=== PATIENT | female | born 1950 | race African-American/Black ===

== ENCOUNTER → 2018-06-23 | Outpatient (CLI) | payer MEDICARE ==
--- NOTE | 2018-06-23 17:48 | Diagnostic Imaging Report ---
Frontal and lateral views of the chest. HISTORY: Shortness of breath COMPARISON: None available. DISCUSSION: Lungs: The lungs are well inflated. No evidence of a consolidative pneumonia or pulmonary alveolar edema. Pleura: No pleural effusion or pneumothorax. Heart and mediastinum: The cardiomediastinal silhouette appears unremarkable. Multiple small calcified right hilar and mediastinal lymph nodes. Bones: No acute osseous lesion. IMPRESSION: No acute radiographic abnormality. Signed by: Dr. Freeman Lee D.O., M.M.M. on 06/23/2018 5:44 PM
--- NOTE | 2018-06-24 08:16 | Diagnostic Imaging Report ---
EXAM: Thyroid Ultrasound INDICATION: Disorder of thyroid. Prior radiation for cancer COMPARISON: None TECHNIQUE: Transverse and sagittal images were obtained of the thyroid gland. FINDINGS: Thyroid gland: Size: Right lobe 3.2 x 1.0 x 1.1 cm, small in size Left lobe 2.6 x 0.8 x 1.1 cm, small in size Isthmus 0.2 cm, small in size Appearance: Homogeneous echotexture without increased vascularity Masses/Nodules: None Parathyroid: No focal parathyroid masses. IMPRESSION: Small thyroid gland. No focal mass is seen. Signed by: Dr. Mark Holliday M.D. on 06/24/2018 8:13 AM
== END ==
LOC: RAD 16:51
DX: R06.02 Shortness of breath (principal)
CPT/HCPCS: 71046; 76536

== ENCOUNTER 2018-07-14 10:19 | Inpatient (IN) | payer MEDICARE ==
[~2018-07-14] VITALS: Ht 289.6 cm; Wt 67.7 kg
[2018-07-14] MEDS: POTASSIUM CHLORIDE 20MEQ/100ML 100 ML IV SCH ×3 (05:00→20:56)
[~2018-07-14 10:19] MED LIST: LEVOTHYROXINE50 MCG PO; NEXIUM40 MG PO
--- OUTSIDE RECORDS SUMMARY | 2018-07-14 10:21 | XMS REPORT ---
Author Author [facility] Address Unknown Phone Unavailable Care Team Providers Care Medical Examiner Name Role Phone ANTONIA MURRELL Unavailable Unavailable Problems This patient has no known problems. Allergies, Adverse Reactions, Alerts This patient has no known allergies or adverse reactions. Medications This patient has no known medications. Results Test Description Test Time Test Comments Text Results Atomic Results Result Comments US THYROID 2018-06-24 08:12:00 [place] [address] Patient Name: CAROLYN LAM MR #: [id number] : 1950 Age/Sex: 68/F [id number] Req #: [id number] [facility] Physician: Ordered by: ANTONIA MURRELL MD Report #: [id number] Location: [facility] Room/Bed: Procedure: [id number] US/US THYROID Exam Date: Exam Time: REPORT STATUS: Signed EXAM: Thyroid Ultrasound INDICATION: Disorder of thyroid. Prior radiation for cancer COMPARISON: None TECHNIQUE: Transverse and sagittal images were obtained of the thyroid gland. FINDINGS: Thyroid gland: Size: Right lobe 3.2 x 1.0 x 1.1 cm, small in size Left lobe 2.6 x 0.8 x 1.1 cm, small in size Isthmus 0.2 cm, small in size Appearance: Homogeneous echotexture without increased vascularity Masses/Nodules: None Parathyroid: No focal parathyroid masses. IMPRESSION: Small thyroid gland. No focal mass is seen. Signed by: Dr. Mark Holliday M.D. on 06/24/2018 8:13 AM Dictated By: MARK HOLLIDAY MD, MD 2 Transcribed By: JOY on 06/24/18812 COPY TO: ANTONIA MURRELL MD CHEST 2 VIEWS 2018-06-23 17:43:00 [place] [address] Patient Name: CAROLYN LAM MR #: [id number] : 1950 Age/Sex: 68/F [id number] Req #: [id number] Adm Physician: Ordered by: ANTONIA MURRELL MD Report #: [id number] Location: [facility] Room/Bed: Procedure: [id number] DX/CHEST 2 VIEWS Exam Date: 06/23/18 Exam Time: 1728 REPORT STATUS: Signed Frontal and lateral views of the chest. HISTORY: Shortness of breath COMPARISON: None available. DISCUSSION: Lungs: The lungs are well inflated. No evidence of a consolidative pneumonia or pulmonary alveolar edema. Pleura: No pleural effusion or pneumothorax. Heart and mediastinum: The cardiomediastinal silhouette appears unremarkable. Multiple small calcified right hilar and mediastinal lymph nodes. Bones: No acute osseous lesion. IMPRESSION: No acute radiographic abnormality. Signed by: Dr. John Lee D.O., M.M.M. on 06/23/2018 5:44 PM Dictated By: JOHN LEE DO 43 Transcribed By: JOY on 06/23/181743 COPY TO: ANTONIA MURRELL MD
[2018-07-14 14:35] VITALS: BP 132/76
[2018-07-14 15:30] VITALS: BP 132/70
[2018-07-14] MEDS ORDERED: POTASSIUM CHLORIDE 20MEQ/100ML 100 ML IV ONE (16:15)
[2018-07-14] MEDS ORDERED: POTASSIUM CHLORIDE 20 MEQ TAB CR PO ONE (16:30)
[2018-07-14 20:00] VITALS: BP 139/82
[2018-07-15] VITALS (7 sets, daily range): BP systolic 101–164; BP diastolic 59–76
[2018-07-15] MEDS: POTASSIUM CHLORIDE 20MEQ/100ML 100 ML IV SCH (02:17)
[2018-07-15] MEDS ORDERED: CITRATE OF MAGNESIA 300ML BOTTLE PO ONE (05:00)
[2018-07-15] MEDS: LEVOTHYROXINE SODIUM 50 MCG TAB PO SCH (05:09)
[2018-07-15 05:50] LABS: ANION GAP 13.4 mmol/L (8-16); BLOOD UREA NITROGEN 7 mg/dL (7-26); BUN/CREATININE RATIO 7 (6-25); CALCIUM 9.5 mg/dL (8.4-10.2); CARBON DIOXIDE 26 mmol/L (22-29); CHLORIDE 103 mmol/L (98-107); CREATININE, SERUM 0.95 mg/dL (0.57-1.11); EST GLOMERULAR FILTRATION RATE > 60 ML/MIN (60-); GLUCOSE 93 mg/dL (74-118); POTASSIUM 3.4 mmol/L (3.5-5.1); SODIUM 139 mmol/L (136-145)
[2018-07-15] MEDS ORDERED: PANTOPRAZOLE SOD 40 MG TABEC PO SCH (09:00)
[2018-07-15] MEDS ORDERED: LEVOTHYROXINE SODIUM 50 MCG TAB PO SCH (09:00)
[2018-07-15] MEDS: PANTOPRAZOLE 40 MG 10ML VIAL IV SCH ×2 (09:22→21:42)
[2018-07-15] MEDS ORDERED: POTASSIUM CHLORIDE 20MEQ/100ML 100 ML IV ONE (11:30)
[2018-07-15] MEDS ORDERED: HYOSCYAMINE SULFATE 0.5 MG/ML INJ ONE (16:00)
--- NOTE | 2018-07-15 16:14 | Diagnostic Imaging Report ---
Exam: Abdominal radiograph History: Localizing wire Comparison: None. Findings: See impression Impression: Endoscopy wire with the distal tip below the diaphragm and located anteriorly overlying the upper abdomen. Signed by: Dr. Lan Mcgregor M.D. on 07/15/2018 4:11 PM
[2018-07-15] MEDS ORDERED: FENTANYL CITRATE/PF 100MCG/2 ML INJ ONE ×2 (16:48→18:56)
[2018-07-15] MEDS ORDERED: LIDOCAINE HCL 2% LOCAL INJ 5 ML SDV VIAL INJ ONE (17:37)
[2018-07-15] MEDS ORDERED: PROPOFOL IV EMULSION 10 MG/ML 20 ML VIAL ONE (17:37)
[2018-07-15] MEDS ORDERED: MIDAZOLAM HCL 2 MG/2 ML VIAL ONE (18:56)
[2018-07-15 19:33] LABS: BASOPHILS % 0.9 % (0.0-1.0); EOSINOPHILS # (AUTO) 0.1 (0.0-0.4); EOSINOPHILS % 1.7 % (0.0-6.0); HEMATOCRIT 25.1 % (34.2-44.1); HEMOGLOBIN 7.1 g/dL (12.0-16.0); LYMPHOCYTES # (AUTO) 0.9 (1.0-3.2); LYMPHOCYTES % 19.7 % (18.0-39.1); MEAN CORPUSCULAR HEMOGLOBIN 27.8 pg (28-32); MEAN CORPUSCULAR HGB CONC 28.3 g/dL (31-35); MEAN CORPUSCULAR VOLUME 98.4 fL (81-99); MONOCYTES # (AUTO) 0.5 (0.2-0.8); MONOCYTES % 9.9 % (4.4-11.3); NEUTROPHILS # (AUTO) 2.6 (2.1-6.9); NEUTROPHILS % 56.2 % (38.7-80.0); PLATELET COUNT 170 x10e3/uL (140-360); RED BLOOD COUNT 2.55 x10e6/uL (3.6-5.1); RED CELL DISTRIBUTION WIDTH 21.6 % (11.7-14.4)
[2018-07-15 20:28] LABS: EOSINOPHILS % (MANUAL) 1 % (0-7); HYPOCHROMASIA MODERATE; LYMPHOCYTES % (MANUAL) 29 % (19-48); METAMYELOCYTES % (MANUAL) 1 % (0-0); MONOCYTES % (MANUAL) 8 % (3.4-9.0); NEUTROPHILS % (MANUAL) 52 % (40-74); NUCLEATED RED BLOOD CELLS 6
[2018-07-15 20:29] LABS: PLATELET ESTIMATE ADEQUATE; PLATELET MORPHOLOGY COMMENT NORMAL; RBC MORPHOLOGY COMMENT NORMAL
[2018-07-16] VITALS (7 sets, daily range): BP systolic 106–149; BP diastolic 54–88
[2018-07-16 05:32] LABS: BASOPHILS % 0.5 % (0.0-1.0); EOSINOPHILS # (AUTO) 0.1 (0.0-0.4); EOSINOPHILS % 1.2 % (0.0-6.0); LYMPHOCYTES % 17.4 % (18.0-39.1); MEAN CORPUSCULAR HEMOGLOBIN 28.3 pg (28-32); MEAN CORPUSCULAR HGB CONC 29.2 g/dL (31-35); MONOCYTES # (AUTO) 0.6 (0.2-0.8); MONOCYTES % 10.2 % (4.4-11.3); NEUTROPHILS # (AUTO) 3.8 (2.1-6.9); NEUTROPHILS % 63.3 % (38.7-80.0); PLATELET COUNT 161 x10e3/uL (140-360); RED BLOOD COUNT 2.33 x10e6/uL (3.6-5.1); RED CELL DISTRIBUTION WIDTH 21.3 % (11.7-14.4)
[2018-07-16] MEDS: LEVOTHYROXINE SODIUM 50 MCG TAB PO SCH (05:51)
[2018-07-16 05:58] LABS: HEMATOCRIT 22.6 % (34.2-44.1); HEMOGLOBIN 6.6 g/dL (12.0-16.0)
[2018-07-16 06:06] LABS: ANION GAP 13.2 mmol/L (8-16); BLOOD UREA NITROGEN 7 mg/dL (7-26); BUN/CREATININE RATIO 7 (6-25); CALCIUM 9.3 mg/dL (8.4-10.2); CARBON DIOXIDE 26 mmol/L (22-29); CHLORIDE 108 mmol/L (98-107); CREATININE, SERUM 0.94 mg/dL (0.57-1.11); EST GLOMERULAR FILTRATION RATE > 60 ML/MIN (60-); GLUCOSE 90 mg/dL (74-118); POTASSIUM 4.2 mmol/L (3.5-5.1); SODIUM 143 mmol/L (136-145)
[2018-07-16] MEDS: PANTOPRAZOLE 40 MG 10ML VIAL IV SCH ×2 (09:11→20:27)
[2018-07-16 13:23] LABS: BAND NEUTROPHILS % (MANUAL) 7 %; LYMPHOCYTES % (MANUAL) 15 % (19-48); MONOCYTES % (MANUAL) 11 % (3.4-9.0); NEUTROPHILS % (MANUAL) 67 % (40-74)
[2018-07-16 13:24] LABS: ANISOCYTOSIS MODERATE; ELLIPTOCYTE, RBC SLIGHT; HYPOCHROMASIA MODERATE; PLATELET ESTIMATE ADEQUATE; PLATELET MORPHOLOGY COMMENT NORMAL; RBC MORPHOLOGY COMMENT ABNORMAL; TEAR DROP CELLS FEW
[2018-07-16] MEDS ORDERED: SODIUM CHLORIDE 0.9% 250ML 250 ML IV ONE (14:15)
[2018-07-16] MEDS ORDERED: SODIUM CHLORIDE 0.9% 250ML 250 ML ONE (23:04)
[2018-07-17] VITALS: BP 135/70
[2018-07-17 04:00] VITALS: BP 125/71
[2018-07-17 05:12] LABS: BASOPHILS # (AUTO) 0.1 (0.0-0.1); BASOPHILS % 0.8 % (0.0-1.0); EOSINOPHILS # (AUTO) 0.1 (0.0-0.4); EOSINOPHILS % 1.5 % (0.0-6.0); HEMATOCRIT 28.6 % (34.2-44.1); LYMPHOCYTES # (AUTO) 1.3 (1.0-3.2); LYMPHOCYTES % 21.5 % (18.0-39.1); MEAN CORPUSCULAR HEMOGLOBIN 28.7 pg (28-32); MEAN CORPUSCULAR HGB CONC 31.5 g/dL (31-35); MEAN CORPUSCULAR VOLUME 91.1 fL (81-99); MONOCYTES # (AUTO) 0.5 (0.2-0.8); MONOCYTES % 8.6 % (4.4-11.3); NEUTROPHILS # (AUTO) 3.6 (2.1-6.9); NEUTROPHILS % 58.3 % (38.7-80.0); PLATELET COUNT 169 x10e3/uL (140-360); RED BLOOD COUNT 3.14 x10e6/uL (3.6-5.1); RED CELL DISTRIBUTION WIDTH 20.6 % (11.7-14.4)
[2018-07-17 05:28] LABS: ANION GAP 16.2 mmol/L (8-16); BLOOD UREA NITROGEN 10 mg/dL (7-26); BUN/CREATININE RATIO 10 (6-25); CALCIUM 9.7 mg/dL (8.4-10.2); CARBON DIOXIDE 21 mmol/L (22-29); CHLORIDE 104 mmol/L (98-107); CREATININE, SERUM 0.98 mg/dL (0.57-1.11); EST GLOMERULAR FILTRATION RATE > 60 ML/MIN (60-); GLUCOSE 60 mg/dL (74-118); POTASSIUM 3.2 mmol/L (3.5-5.1); SODIUM 138 mmol/L (136-145)
[2018-07-17] MEDS: LEVOTHYROXINE SODIUM 50 MCG TAB PO SCH (06:25)
[2018-07-17 08:22] VITALS: BP 120/69
[2018-07-17] MEDS ORDERED: IRON DEXTRAN INJ 500 MG in SODIUM CHLORIDE 0.9% 500ML 500 ML IV PRN (08:30)
[2018-07-17] MEDS ORDERED: DEXAMETHASONE PHOS 10MG INJ 20 MG in SODIUM CHLORIDE 0.9% 50ML 50 ML IV ONE (08:30)
[2018-07-17] MEDS ORDERED: FAMOTIDINE INJ 20 MG in SODIUM CHLORIDE 0.9% 50ML 50 ML IV ONE (08:30)
[2018-07-17] MEDS ORDERED: IRON DEXTRAN INJ 50 MG in SODIUM CHLORIDE 0.9% 100 ML IV ONE (08:30)
[2018-07-17] MEDS ORDERED: DIPHENHYDRAMINE HCL INJ 25 MG in SODIUM CHLORIDE 0.9% 50ML 50 ML IV ONE (08:30)
[2018-07-17 09:03] LABS: ANISOCYTOSIS MODERATE; BAND NEUTROPHILS % (MANUAL) 1 %; ELLIPTOCYTE, RBC SLIGHT; HYPOCHROMASIA SLIGHT; LYMPHOCYTES % (MANUAL) 30 % (19-48); METAMYELOCYTES % (MANUAL) 2 % (0-0); MONOCYTES % (MANUAL) 6 % (3.4-9.0); MYELOCYTES % (MANUAL) 2 % (0-0); NEUTROPHILS % (MANUAL) 59 % (40-74); PLATELET ESTIMATE ADEQUATE; PLATELET MORPHOLOGY COMMENT NORMAL; RBC MORPHOLOGY COMMENT ABNORMAL; TEAR DROP CELLS FEW
[2018-07-17] MEDS ORDERED: POTASSIUM CHLORIDE 60 MEQ in SODIUM CHLORIDE 0.9% 1000ML 1,000 ML IV ONE (10:00)
[2018-07-17] MEDS: PANTOPRAZOLE 40 MG 10ML VIAL IV SCH ×2 (10:02→21:43)
[2018-07-17 10:22] VITALS: BP 120/69
--- NOTE | 2018-07-17 11:00 | Diagnostic Imaging Report ---
PROCEDURE: CT ABDOMEN AND PELVIS WITH CONTRAST TECHNIQUE: The abdomen and pelvis were scanned utilizing a multidetector helical scanner from the diaphragm to the lesser trochanter after the IV administration of 100 cc of Isovue 370 and the oral administration of 900 cc of water. Coronal and sagittal multiplanar reformations were obtained. COMPARISON: None. INDICATIONS: EVAL LIVER METS, COLON CANCER FINDINGS: LOWER THORAX: Scattered coronary atherosclerosis. HEPATOBILIARY: A small aspect of the hepatic dome is excluded from the field of view. No focal hepatic lesions. No biliary ductal dilatation. SPLEEN: No splenomegaly. Calcified splenic granulomas are noted. PANCREAS: No focal masses or ductal dilatation. ADRENALS: No adrenal nodules. KIDNEYS/URETERS: No hydronephrosis, stones, or solid mass lesions. PELVIC ORGANS/BLADDER: The bladder is unremarkable. Fibroid uterus is noted. PERITONEUM / RETROPERITONEUM: No free air or fluid. LYMPH NODES: No lymphadenopathy. VESSELS: Moderate atherosclerotic calcifications of the abdominal aorta and branch vessels. Ectatic infrarenal abdominal aorta. GI TRACT: No distention or wall thickening. Sigmoid diverticulosis without CT evidence of diverticulitis. BONES AND SOFT TISSUES: No acute bony findings. No suspicious lytic or blastic lesions. IMPRESSION: No evidence of metastatic disease in the abdomen or pelvis. A small aspect of the hepatic dome however was not imaged on this study. Dictated by: BURT MCLEOD M.D. on 07/17/2018 at 11:08 Electronically approved by: BURT MCLEOD M.D. on 07/17/2018 at 11:08
[2018-07-17] MEDS ORDERED: SODIUM CHLORIDE 0.9% 50ML 50 ML ONE (11:46)
[2018-07-17] MEDS ORDERED: IOPAMIDOL 370 MG/ML 200 ML INFUS..BTL INJ ONE (11:46)
[2018-07-17 15:00] VITALS: BP 117/67
[2018-07-17 20:00] VITALS: BP 134/75
[2018-07-18] VITALS: BP 176/92
[2018-07-18 04:00] VITALS: BP 123/66
[2018-07-18] MEDS: LEVOTHYROXINE SODIUM 50 MCG TAB PO SCH (05:42)
[2018-07-18 06:50] LABS: ANION GAP 14.5 mmol/L (8-16); BLOOD UREA NITROGEN 11 mg/dL (7-26); BUN/CREATININE RATIO 11 (6-25); CALCIUM 9.6 mg/dL (8.4-10.2); CARBON DIOXIDE 20 mmol/L (22-29); CHLORIDE 109 mmol/L (98-107); CREATININE, SERUM 0.98 mg/dL (0.57-1.11); EST GLOMERULAR FILTRATION RATE > 60 ML/MIN (60-); GLUCOSE 179 mg/dL (74-118); POTASSIUM 4.5 mmol/L (3.5-5.1); SODIUM 139 mmol/L (136-145)
[2018-07-18 08:00] VITALS: BP 161/91
[2018-07-18 08:16] LABS: BASOPHILS % 0.6 % (0.0-1.0); EOSINOPHILS % 0.3 % (0.0-6.0); HEMATOCRIT 28.2 % (34.2-44.1); HEMOGLOBIN 8.9 g/dL (12.0-16.0); LYMPHOCYTES % 13.9 % (18.0-39.1); MEAN CORPUSCULAR HEMOGLOBIN 28.5 pg (28-32); MEAN CORPUSCULAR HGB CONC 31.6 g/dL (31-35); MEAN CORPUSCULAR VOLUME 90.4 fL (81-99); MONOCYTES # (AUTO) 0.4 (0.2-0.8); MONOCYTES % 5.2 % (4.4-11.3); NEUTROPHILS % 70.9 % (38.7-80.0); PLATELET COUNT 190 x10e3/uL (140-360); RED BLOOD COUNT 3.12 x10e6/uL (3.6-5.1)
[2018-07-18 09:00] VITALS: BP 161/91
[2018-07-18] MEDS: PANTOPRAZOLE 40 MG 10ML VIAL IV SCH (09:21)
[2018-07-18 10:38] LABS: BAND NEUTROPHILS % (MANUAL) 8 %; LYMPHOCYTES % (MANUAL) 14 % (19-48); METAMYELOCYTES % (MANUAL) 2 % (0-0); MONOCYTES % (MANUAL) 4 % (3.4-9.0); MYELOCYTES % (MANUAL) 4 % (0-0); NEUTROPHILS % (MANUAL) 68 % (40-74); NUCLEATED RED BLOOD CELLS 2
[2018-07-18 10:39] LABS: HYPOCHROMASIA SLIGHT; POLYCHROMASIA FEW
[2018-07-18 10:40] LABS: ANISOCYTOSIS SLIGHT; OVALOCYTES FEW; PLATELET ESTIMATE ADEQUATE; PLATELET MORPHOLOGY COMMENT NORMAL; RBC MORPHOLOGY COMMENT NORMAL
[2018-07-18 12:00] VITALS: BP 143/82
--- NOTE | 2018-07-18 12:44 | Consultation ---
DATE OF CONSULTATION: July 17, 2018 CONSULTATION TO: Dr. Candelario Carranza Ms. Pimentel is a 68-year-old black female known to me from my office visit on 06/30/[address] Candelario Carranza. The patient was referred to me for evaluation of anemia. Hemoglobin on 06/23/2018 was 7 grams with a low MCHC of 31.9 with a high RDW of 19.9. Subsequently, the patient was suggested IV INFeD. The patient also claimed at that time that she had weakness in the legs. "I eat a lot of ice. I have difficulty swallowing." The patient also had shortness of breath. The patient was treated with antibiotics for UTI. The patient had an EGD scheduled for 07/14/2018. However, she landed up in the hospital. She also complained of an abdominal mass which she feels. HISTORY OF PAST ILLNESSES 1. 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 2. History of hypothyroidism. 3. History of emphysema. 4. History of coronary artery disease. SURGICAL HISTORY: Tonsillectomy. SOCIAL HISTORY: History of smoking in the past. FAMILY HISTORY: Noncontributory. ALLERGIES: REPORTED NONE. MEDICATIONS AT THIS TIME: Synthroid and Nexium. REVIEW OF SYSTEMS HEENT: Cancer of the larynx. CARDIAC: History of coronary artery disease. RESPIRATORY: History of emphysema. GI: She feels an abdominal mass. : Normal. MUSCULOSKELETAL: Normal. SKIN AND BREASTS: Normal. NEUROENDOCRINE: History of hypothyroidism. PHYSICAL EXAMINATION GENERAL: Moderately built female. Anemic. No adenopathy. HEART: Within normal limits. LUNGS: Clear. BREASTS: Exam deferred. ABDOMEN: Soft. There is a palpable mass in the mid abdomen just above the umbilicus, freely mobile, behind the skin, unattached, 4 x 4 cm. RECTAL AND VAGINAL: Examinations deferred. CENTRAL NERVOUS SYSTEM: Essentially normal. LABS: Hemoglobin of 9; hematocrit 28.6; white count 6100; platelets of 169,000. IMPRESSION 1. Iron deficiency anemia. Initial hemoglobin was 6.6 grams. 2. Hypokalemia (2.2). 3. History of cancer of the head and neck. 4. Possible colon cancer. Plan is to have a CEA. CT of the abdomen and pelvis as suggested on 06/30/2018. The CAT scan of the abdomen and pelvis was done, which did not show any liver metastases. Colonoscopy did show the patient to have a polyp and possible cancer. The patient should have a curative resection. I will confine myself to hematology oncology. Thank you. Job#: [id number] cc:MD VICKY ALVARES MD JORGE RODRIGUEZ, MD
--- NOTE | 2018-09-03 02:55 | Discharge Summary ---
CHIEF COMPLAINT: Hypokalemia. FINAL DIAGNOSES 1. Hypokalemia. 2. Esophageal stricture. 3. Dysphagia. 4. Mass on right colon. 5. Hypothyroid. PROCEDURES 1. Transfusion of packed cells. 2. EGD with dilatation. 3. Colonoscopy with biopsies. DISPOSITION: Home. A 68-year-old female, known history of hypothyroidism, history of CA of the larynx treated with surgery and radiation, history of anemia of chronic disease. She was scheduled to have a full endoscopy procedure as an outpatient, but procedure was aborted when the blood test studies showed she had hypokalemia. Now undergoing admission for replenishment. She also has been complaining of muscular weakness, more notable in the neck. No nausea or vomiting. No chest pain. No palpitations. Further review and evaluation was conducted in the emergency room. Admission was made for care due to hypokalemia, hypothyroidism, history of CA of larynx, anemia of chronic disease. She will be admitted for observation. Began IV potassium replenishment. From the ER, she was in IMCU, clear liquid diet, resting comfortably. Her daily medications were being received. Her chemistries were showing a borderline potassium of 3.4. Kidney functions stable. Glucose was 93 and as her potassium was stabilizing, she is now being scheduled for her endoscopic procedures with Dr. Cali Carranza. Her CBC was showing hemoglobin of 6.6. She is currently scheduled for the blood transfusion. Following her endoscopic study, she was showing evidence of tumor in the right colon along with esophageal stricture. Post procedure, she was on a clear liquid diet. She was swallowing better post procedure. Hemoglobin post transfusion was 9.01. With the CA history, her anemia, and current findings of her colonoscopy, Dr. Davis was seeing the patient and his impression was iron-deficiency anemia, hypokalemia, history of cancer of the larynx, requesting CA blood studies. Recommending CT of the abdomen and pelvis and these studies returned negative for evidence of mets. She was also now receiving IV iron per Dr. Oro as she was on clear liquids. The findings from the colonoscopy led to general surgery review and with Dr. Ford's evaluation, his assessment was carcinoma of hepatic flexure, history of throat cancer, status post dilatation of stricture. Patient will need a right hemicolectomy allow the patient to discharge and do a full bowel prep, then readmit for surgery to allow sometime for the dilatation to heal. Patient will need NG tube postop. Patient continued to be in med surg floor, resting comfortably, continuing to swallow well. Potassium still noted to 3.2. On 07/18, her potassium was 4.5. Hemoglobin had trended down to 8.9. She stabilized and was cleared for discharge as previously discussed and she will be returning on an outpatient basis to undergo a right colectomy per Dr. Ford. She was released home on 07/18/2018 in stable, but guarded condition. EKGs are showing sinus rhythm with a short [place] with premature atrial complexes, ST abnormality, possible digitalis effect. PROCEDURES: EGD with dilatation, 07/15/2018. Preop diagnosis was dysphagia. The procedure was conducted. Findings show the procedure were showing a tight esophageal stricture dilated to a 15 over guidewire distal esophagus; mild gastritis, mild biopsies were obtained. Patient will be started on Protonix 40 mg 1 tablet p.o. a.c. b.i.d. She was then turned around. She was then set up for the colonoscopy. Findings were showing ascending colon mass, which was biopsied. Descending colon polyps, biopsied, snared. Findings of diverticular disease was noted as well. Tolerated the procedure well. Specimens went to path. Patient will be needing CT of the abdomen and pelvis. Path was showing evidence cancerous presence. General surgery discussion, she will be needing a hemicolectomy, which will be done on an outpatient basis. Agreement was made for discharge and then, come back for the procedure per Dr. Ford. She was discharged home on 07/18/2018 in stable guarded condition as mentioned. She will be on a regular diet. She was instructed to eat and chew in small bites. No equipment or supplies were necessary, drains or Cheung needed. Activity level as tolerated. She will be following up with me in 1-2 weeks. Returning back to Dr. Ford's office in 1 to 2 weeks to discuss the surgical planning. She will be taking Nexium 40 mg daily. She will continue levothyroxine 50 mcg daily. She will be watching for bloody stools or intense abdominal pain. If these were to occur, she will be contacting my office immediately. Dictated By: CHARITY Tejada Job#: [id number] CQ
== END 2018-07-18 13:11 | disposition home or self-care (01) | DRG 376 ==
LOC: OR 10:19 → PACU V 15:07 → IMCU 15:28 → OBSVTOIN 07-16 17:20 → MED/SURG3 07-17 10:42
PROC: 0DB78ZX Excision of Stomach, Pylorus, Via Natural or Artificial Opening Endoscopic, Diagnostic (ICD-10-PCS; 2018-07-14)
PROC: 0DBK8ZX Excision of Ascending Colon, Via Natural or Artificial Opening Endoscopic, Diagnostic (ICD-10-PCS; 2018-07-14)
PROC: 0DBM8ZX Excision of Descending Colon, Via Natural or Artificial Opening Endoscopic, Diagnostic (ICD-10-PCS; 2018-07-14)
PROC: 0D758DZ Dilation of Esophagus with Intraluminal Device, Via Natural or Artificial Opening Endoscopic (ICD-10-PCS; 2018-07-14)
PROC: 30233N1 Transfusion of Nonautologous Red Blood Cells into Peripheral Vein, Percutaneous Approach (ICD-10-PCS; principal; 2018-07-16)
DX: C18.3 Malignant neoplasm of hepatic flexure (principal); D50.9 Iron deficiency anemia, unspecified; E87.6 Hypokalemia; D63.8 Anemia in other chronic diseases classified elsewhere; Z85.21 Personal history of malignant neoplasm of larynx; I25.10 Atherosclerotic heart disease of native coronary artery without angina pectoris; E03.9 Hypothyroidism, unspecified; K22.2 Esophageal obstruction; J44.9 Chronic obstructive pulmonary disease, unspecified
CPT/HCPCS: 36415; 43239; 43248; 45385; 74018; 74177; 80048; 82378; 84132; 85025; 86850; 86900; 86920; 88305; 88312; 93005; G0378; J1100; J1200; J1750; J1980; J2001; J2250; J3480; J7030; J7040; J7050; P9016; Q9967

== ENCOUNTER 2018-07-24 07:44 | Inpatient (IN) | payer MEDICARE ==
[2018-07-23 14:05] LABS: BASOPHILS % 0.7 % (0.0-1.0); EOSINOPHILS # (AUTO) 0.1 (0.0-0.4); EOSINOPHILS % 1.6 % (0.0-6.0); HEMATOCRIT 35.1 % (34.2-44.1); HEMOGLOBIN 10.6 g/dL (12.0-16.0); LYMPHOCYTES # (AUTO) 1.4 (1.0-3.2); LYMPHOCYTES % 23.6 % (18.0-39.1); MEAN CORPUSCULAR HEMOGLOBIN 28.1 pg (28-32); MEAN CORPUSCULAR HGB CONC 30.2 g/dL (31-35); MEAN CORPUSCULAR VOLUME 93.1 fL (81-99); MONOCYTES # (AUTO) 0.6 (0.2-0.8); MONOCYTES % 9.7 % (4.4-11.3); NEUTROPHILS # (AUTO) 3.1 (2.1-6.9); NEUTROPHILS % 50.6 % (38.7-80.0); PLATELET COUNT 177 x10e3/uL (140-360); RED BLOOD COUNT 3.77 x10e6/uL (3.6-5.1); RED CELL DISTRIBUTION WIDTH 19.6 % (11.7-14.4)
[2018-07-23 14:21] LABS: ANION GAP 13.7 mmol/L (8-16); CALCIUM 10.3 mg/dL (8.4-10.2); CREATININE, SERUM 1.12 mg/dL (0.57-1.11); POTASSIUM 3.7 mmol/L (3.5-5.1)
[2018-07-23 15:23] LABS: EOSINOPHILS % (MANUAL) 3 % (0-7); LYMPHOCYTES % (MANUAL) 18 % (19-48); METAMYELOCYTES % (MANUAL) 1 % (0-0); MICROCYTOSIS SLIGHT; MONOCYTES % (MANUAL) 16 % (3.4-9.0); NEUTROPHILS % (MANUAL) 59 % (40-74); PLATELET ESTIMATE ADEQUATE; PLATELET MORPHOLOGY COMMENT NORMAL; RBC MORPHOLOGY COMMENT NORMAL
[~2018-07-24] VITALS: Ht 289.6 cm; Wt 68.0 kg
[2018-07-24] MEDS ORDERED: CEFOXITIN SOD 1 GM VIAL ONE (09:47)
[2018-07-24] MEDS ORDERED: ACETAMINOPHEN 1000 MG/100 ML IV PRN (11:00)
[2018-07-24] MEDS ORDERED: HYDROMORPHONE 1MG/1ML INJ IV PRN (11:00)
[2018-07-24] MEDS ORDERED: HYDROMORPHONE 2MG/ML 2 MG/ML ML ONE (11:45)
[2018-07-24] MEDS ORDERED: CEFOXITIN 1GM/ NS 50ML 50 ML IV SCH (12:00)
--- NOTE | 2018-07-24 13:03 | Operative Report ---
DATE OF PROCEDURE: July 24, 2018 PREOPERATIVE DIAGNOSES: 1. 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 2. Ventral hernia. POSTOPERATIVE DIAGNOSES: 1. 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 1. Ventral hernia. OPERATIONS PERFORMED: 1. Exploratory laparotomy. 2. Right hemicolectomy. 3. Repair of ventral hernia. DIRECTOR OF DIGITAL PLATFORMS: Dr. Khalif Ford. ANESTHESIA: General endotracheal. COMPLICATIONS: None. ESTIMATED BLOOD LOSS: 50 mL. DESCRIPTION OF PROCEDURE: With the patient lying in bed in the supine position under good general endotracheal anesthesia, the abdomen was prepped with Betadine solution and draped in the usual manner. A midline incision was made in a periumbilical fashion, and immediately the ventral hernia was identified in the epigastric area. Hernia was then dissected circumferentially, and then the fascia was opened and the hernia sac was incorporated into the incision of the midline. The excess of the hernia sac was then resected. Examination of the abdomen at this point revealed a palpable mass in the hepatic flexure of the colon. There was an obvious tattoo that had been placed there. The mass appeared to be almost circumferential and did not appear to extend through the serosa grossly. The rest of the abdominal exploration was otherwise within normal limits. There was no sign of metastatic spread of disease to the liver or the intra-abdominal cavity. We decided to go ahead and proceed with a right hemicolectomy. The right colon was then mobilized off of the lateral gutter and swung medially. The right ureter was identified and preserved, and the duodenum was identified and without any difficulty and the right colon was swung medially without any difficulty. At this point, the colon was then divided at the level of the mid transverse colon with an application of a RIAZ 75 stapler, and similarly the terminal ileum was divided with another application of a RIAZ 75 stapler, and the mesentery of the colon was then divided using the Enseal device, and the specimen was sent for pathological examination. Perfect hemostasis was ascertained. The anastomosis was then completed with bringing the terminal ileum to the mid transverse colon with another application of a RIAZ 75 stapler. The remaining opening was closed with a TA-60 stapler. Gloves and instruments were then changed. The mesenteric rent was closed with a running suture of 2-0 Vicryl. The abdomen was then copiously irrigated, and all of the excess fluid was aspirated and perfect hemostasis was ascertained, and the abdomen and the ventral hernia were then closed in layers. The peritoneum was closed with a running suture of number 1 Vicryl. The midline fascia was closed with a running suture of number 1 Vicryl incorporating the ventral hernia into the closure, and the skin was closed with clips. A dressing was applied. The sponge, lap and needle count was correct. The patient tolerated the procedure well and returned to the recovery room in stable condition. Job#: [id number] EV
[2018-07-24] MEDS: DEXTROSE 5%/LACTATED RINGERS 1,000 ML IV SCH ×2 (14:30→22:00)
[2018-07-24] MEDS ORDERED: FENTANYL CITRATE/PF 100MCG/2 ML INJ ONE (14:36)
[2018-07-24 15:01] VITALS: BP 133/68
[2018-07-24 16:01] VITALS: BP 130/69
[2018-07-24] MEDS: CEFOXITIN SOD 1 GM VIAL IV SCH ×2 (17:00→22:07)
[2018-07-24] MEDS: ONDANSETRON HCL INJ 2 MG/ML VIAL IV PRN ×2 (17:20→22:54)
[2018-07-24] MEDS: PANTOPRAZOLE 40 MG 10ML VIAL IV SCH (17:25)
[2018-07-24 20:00] VITALS: BP 143/65
[2018-07-24] MEDS: HYDROMORPHONE 2MG/ML 2 MG/ML ML IV PRN (22:54)
[2018-07-25] VITALS (7 sets, daily range): BP systolic 115–142; BP diastolic 58–76
[2018-07-25 05:55] LABS: BASOPHILS % 0.4 % (0.0-1.0); EOSINOPHILS % 0.3 % (0.0-6.0); HEMATOCRIT 26.7 % (34.2-44.1); HEMOGLOBIN 8.3 g/dL (12.0-16.0); LYMPHOCYTES # (AUTO) 0.6 (1.0-3.2); LYMPHOCYTES % 7.7 % (18.0-39.1); MEAN CORPUSCULAR HEMOGLOBIN 28.7 pg (28-32); MEAN CORPUSCULAR HGB CONC 31.1 g/dL (31-35); MEAN CORPUSCULAR VOLUME 92.4 fL (81-99); MONOCYTES # (AUTO) 0.6 (0.2-0.8); MONOCYTES % 7.9 % (4.4-11.3); NEUTROPHILS # (AUTO) 5.8 (2.1-6.9); NEUTROPHILS % 75.8 % (38.7-80.0); PLATELET COUNT 165 x10e3/uL (140-360); RED BLOOD COUNT 2.89 x10e6/uL (3.6-5.1); RED CELL DISTRIBUTION WIDTH 18.6 % (11.7-14.4)
[2018-07-25 06:30] LABS: ANION GAP 10.2 mmol/L (8-16); BLOOD UREA NITROGEN 7 mg/dL (7-26); BUN/CREATININE RATIO 7 (6-25); CALCIUM 9.8 mg/dL (8.4-10.2); CARBON DIOXIDE 32 mmol/L (22-29); CHLORIDE 102 mmol/L (98-107); CREATININE, SERUM 0.99 mg/dL (0.57-1.11); EST GLOMERULAR FILTRATION RATE > 60 ML/MIN (60-); GLUCOSE 170 mg/dL (74-118); POTASSIUM 4.2 mmol/L (3.5-5.1); SODIUM 140 mmol/L (136-145)
[2018-07-25 07:10] LABS: BAND NEUTROPHILS % (MANUAL) 5 %; LYMPHOCYTES % (MANUAL) 7 % (19-48); METAMYELOCYTES % (MANUAL) 2 % (0-0); MONOCYTES % (MANUAL) 5 % (3.4-9.0); MYELOCYTES % (MANUAL) 1 % (0-0); NEUTROPHILS % (MANUAL) 80 % (40-74)
[2018-07-25] MEDS ORDERED: DIPHENHYDRAMINE HCL INJ 50 MG/ML VIAL IV PRN (08:30)
[2018-07-25] MEDS: HYDROMORPHONE 2MG/ML 2 MG/ML ML IV PRN ×2 (09:56→22:35)
[2018-07-25] MEDS: PANTOPRAZOLE 40 MG 10ML VIAL IV SCH (12:23)
[2018-07-25] MEDS: DEXTROSE 5%/LACTATED RINGERS 1,000 ML IV SCH (17:34)
[2018-07-25] MEDS ORDERED: DEXAMETHASONE SOD PHOS INJ 4 MG/ML VIAL ONE (19:26)
[2018-07-25] MEDS ORDERED: PROPOFOL IV EMULSION 10 MG/ML 20 ML VIAL ONE (19:26)
[2018-07-25] MEDS ORDERED: NEOSTIGMINE 5 MG/5ML SYR ONE (19:26)
[2018-07-25] MEDS ORDERED: EPHEDRINE SULFATE INJ 50 MG/10 ML SYR ONE (19:26)
[2018-07-25] MEDS ORDERED: GLYCOPYRROLATE INJ 1MG/ 5 ML SYR ONE (19:26)
[2018-07-25] MEDS ORDERED: ROCURONIUM BROMIDE 10 MG/ML 5ML VIAL ONE (19:26)
[2018-07-25] MEDS ORDERED: KETOROLAC TROMETHAMINE 30 MG/ML VIAL ONE (19:26)
[2018-07-25] MEDS ORDERED: SEVOFLURANE INHAL SOLN 250 ML PEN BTL ONE (19:26)
[2018-07-25] MEDS ORDERED: ACETAMINOPHEN 1000 MG/100 ML IV ONE (19:26)
[2018-07-25] MEDS ORDERED: ONDANSETRON HCL INJ 2 MG/ML VIAL ONE (19:26)
[2018-07-25] MEDS: BISACODYL 10 MG SUPP PR SCH (21:00)
[2018-07-25] MEDS: ONDANSETRON HCL INJ 2 MG/ML VIAL IV PRN (22:35)
[2018-07-26] VITALS (7 sets, daily range): BP systolic 120–151; BP diastolic 58–71
[2018-07-26] MEDS: DEXTROSE 5%/LACTATED RINGERS 1,000 ML IV SCH ×3 (05:25→22:15)
[2018-07-26 05:50] LABS: BASOPHILS % 0.5 % (0.0-1.0); EOSINOPHILS % 0.3 % (0.0-6.0); HEMATOCRIT 26.2 % (34.2-44.1); LYMPHOCYTES # (AUTO) 0.8 (1.0-3.2); LYMPHOCYTES % 12.3 % (18.0-39.1); MEAN CORPUSCULAR HEMOGLOBIN 28.4 pg (28-32); MEAN CORPUSCULAR HGB CONC 30.5 g/dL (31-35); MEAN CORPUSCULAR VOLUME 92.9 fL (81-99); MONOCYTES # (AUTO) 0.6 (0.2-0.8); MONOCYTES % 8.8 % (4.4-11.3); NEUTROPHILS # (AUTO) 4.4 (2.1-6.9); PLATELET COUNT 172 x10e3/uL (140-360); RED BLOOD COUNT 2.82 x10e6/uL (3.6-5.1); RED CELL DISTRIBUTION WIDTH 19.1 % (11.7-14.4)
[2018-07-26 06:07] LABS: ANION GAP 11.9 mmol/L (8-16); BLOOD UREA NITROGEN < 5 mg/dL (7-26); CALCIUM 9.8 mg/dL (8.4-10.2); CARBON DIOXIDE 32 mmol/L (22-29); CHLORIDE 104 mmol/L (98-107); CREATININE, SERUM 0.97 mg/dL (0.57-1.11); EST GLOMERULAR FILTRATION RATE > 60 ML/MIN (60-); GLUCOSE 113 mg/dL (74-118); SODIUM 145 mmol/L (136-145)
[2018-07-26 06:08] LABS: BUN/CREATININE RATIO 5 (6-25); POTASSIUM 2.9 mmol/L (3.5-5.1)
[2018-07-26 06:18] LABS: BAND NEUTROPHILS % (MANUAL) 6 %; EOSINOPHILS % (MANUAL) 1 % (0-7); LYMPHOCYTES % (MANUAL) 10 % (19-48); MONOCYTES % (MANUAL) 7 % (3.4-9.0); MYELOCYTES % (MANUAL) 1 % (0-0); NEUTROPHILS % (MANUAL) 75 % (40-74); NUCLEATED RED BLOOD CELLS 1
[2018-07-26] MEDS ORDERED: POTASSIUM CHLORIDE 20MEQ/100ML 20 MEQ in POTASSIUM CHLORIDE 20MEQ/100ML 100 ML IV ONE (06:18)
[2018-07-26 06:19] LABS: ANISOCYTOSIS SLIGHT; MICROCYTOSIS SLIGHT; PLATELET ESTIMATE ADEQUATE; PLATELET MORPHOLOGY COMMENT NORMAL; RBC MORPHOLOGY COMMENT ABNORMAL
[2018-07-26] MEDS: LEVOTHYROXINE SODIUM 50 MCG TAB PO SCH (06:26)
[2018-07-26] MEDS ORDERED: POTASSIUM CHLORIDE 20MEQ/100ML 100 ML IV ONE ×4 (06:32→14:15)
[2018-07-26] MEDS: BISACODYL 10 MG SUPP PR SCH (08:00)
[2018-07-26] MEDS: HYDROMORPHONE 2MG/ML 2 MG/ML ML IV PRN ×2 (08:46→17:50)
[2018-07-26] MEDS: ONDANSETRON HCL INJ 2 MG/ML VIAL IV PRN ×2 (08:46→17:50)
[2018-07-26] MEDS ORDERED: POTASSIUM CHLORIDE 20 MEQ TAB CR PO STA (20:08)
[2018-07-26] MEDS ORDERED: POTASSIUM CHLORIDE 20MEQ/15ML UDC PO ONE ×2 (21:00→23:00)
[2018-07-26] MEDS ORDERED: POTASSIUM CHLORIDE 20 MEQ TAB CR PO ONE (22:15)
[2018-07-27] VITALS (7 sets, daily range): BP systolic 113–155; BP diastolic 55–85
[2018-07-27] MEDS: HYDROMORPHONE 2MG/ML 2 MG/ML ML IV PRN ×3 (01:24→20:53)
[2018-07-27 05:46] LABS: BASOPHILS # (AUTO) 0.1 (0.0-0.1); BASOPHILS % 0.8 % (0.0-1.0); EOSINOPHILS # (AUTO) 0.1 (0.0-0.4); EOSINOPHILS % 0.8 % (0.0-6.0); HEMATOCRIT 27.5 % (34.2-44.1); HEMOGLOBIN 8.3 g/dL (12.0-16.0); LYMPHOCYTES # (AUTO) 1.4 (1.0-3.2); LYMPHOCYTES % 21.8 % (18.0-39.1); MEAN CORPUSCULAR HEMOGLOBIN 28.6 pg (28-32); MEAN CORPUSCULAR HGB CONC 30.2 g/dL (31-35); MEAN CORPUSCULAR VOLUME 94.8 fL (81-99); MONOCYTES # (AUTO) 0.6 (0.2-0.8); MONOCYTES % 9.9 % (4.4-11.3); NEUTROPHILS # (AUTO) 3.5 (2.1-6.9); PLATELET COUNT 186 x10e3/uL (140-360); RED CELL DISTRIBUTION WIDTH 19.2 % (11.7-14.4)
[2018-07-27 06:04] LABS: ANION GAP 12.6 mmol/L (8-16); BLOOD UREA NITROGEN < 5 mg/dL (7-26); CALCIUM 9.7 mg/dL (8.4-10.2); CARBON DIOXIDE 29 mmol/L (22-29); CHLORIDE 104 mmol/L (98-107); CREATININE, SERUM 1.05 mg/dL (0.57-1.11); EST GLOMERULAR FILTRATION RATE > 60 ML/MIN (60-); GLUCOSE 95 mg/dL (74-118); POTASSIUM 3.6 mmol/L (3.5-5.1); SODIUM 142 mmol/L (136-145)
[2018-07-27 06:07] LABS: BUN/CREATININE RATIO 5 (6-25)
[2018-07-27] MEDS: LEVOTHYROXINE SODIUM 50 MCG TAB PO SCH (06:28)
[2018-07-27 08:14] LABS: BAND NEUTROPHILS % (MANUAL) 11 %; LYMPHOCYTES % (MANUAL) 28 % (19-48); MONOCYTES % (MANUAL) 8 % (3.4-9.0); NEUTROPHILS % (MANUAL) 53 % (40-74); PLATELET ESTIMATE ADEQUATE; PLATELET MORPHOLOGY COMMENT NORMAL; RBC MORPHOLOGY COMMENT NORMAL
[2018-07-27] MEDS: ONDANSETRON HCL INJ 2 MG/ML VIAL IV PRN (08:57)
[2018-07-27] MEDS: DEXTROSE 5%/LACTATED RINGERS 1,000 ML IV SCH ×2 (09:28→19:00)
[2018-07-27] MEDS: PANTOPRAZOLE 40 MG 10ML VIAL IV SCH (11:57)
[2018-07-28 00:34] VITALS: BP 133/84
[2018-07-28] MEDS: HYDROMORPHONE 2MG/ML 2 MG/ML ML IV PRN ×2 (03:38→09:03)
[2018-07-28 04:00] VITALS: BP 130/70
[2018-07-28] MEDS: DEXTROSE 5%/LACTATED RINGERS 1,000 ML IV SCH (05:00)
[2018-07-28] MEDS: LEVOTHYROXINE SODIUM 50 MCG TAB PO SCH (06:22)
[2018-07-28 08:34] VITALS: BP 105/62
[2018-07-28 09:03] VITALS: BP 105/62
[2018-07-28 12:07] VITALS: BP 115/66
[2018-07-28] MEDS: PANTOPRAZOLE 40 MG 10ML VIAL IV SCH (12:24)
[2018-07-28] MEDS ORDERED: ACETAMINOPHEN-118 ML PO (12:50)
== END 2018-07-28 13:50 | disposition home or self-care (01) | DRG 331 ==
LOC: OR 07:44 → PACU V 11:04 → MED/SURG 13:59
PROVIDERS: ADMIT Surgery; ATTEND Surgery
PROC: 0DTF0ZZ Resection of Right Large Intestine, Open Approach (ICD-10-PCS; principal; 2018-07-24 11:00)
PROC: 0WQF0ZZ Repair Abdominal Wall, Open Approach (ICD-10-PCS; 2018-07-24 11:00)
DX: C18.3 Malignant neoplasm of hepatic flexure (principal); K43.9 Ventral hernia without obstruction or gangrene; E87.6 Hypokalemia; D64.9 Anemia, unspecified; Z85.21 Personal history of malignant neoplasm of larynx
CPT/HCPCS: 36415; 80048; 84132; 85025; 86850; 86900; 88307; 88309; 88342; 93005; 96361; 96367; 96375; 96376; J0694; J1100; J1885; J2405; J3480

== ENCOUNTER 2018-11-12 22:45 | Emergency (ER) | payer MEDICARE ==
[~2018-11-12] VITALS: Ht 172.7 cm; Wt 60.8 kg
[~2018-11-12 22:45] MED LIST changes: +ACETAMINOPHEN-118 ML PO
[2018-11-12] MEDS ORDERED: SODIUM CHLORIDE 0.9% 1000ML 1,000 ML IV ONE (23:00)
[2018-11-12] MEDS ORDERED: ACETAMINOPHEN 1000 MG/100 ML IV STA (23:08)
[2018-11-12 23:26] LABS: BASOPHILS # (AUTO) 0.1 (0.0-0.1); EOSINOPHILS % 0.2 % (0.0-6.0); HEMATOCRIT 30.2 % (34.2-44.1); HEMOGLOBIN 9.5 g/dL (12.0-16.0); LYMPHOCYTES # (AUTO) 1.1 (1.0-3.2); MEAN CORPUSCULAR HGB CONC 31.5 g/dL (31-35); MEAN CORPUSCULAR VOLUME 95.3 fL (81-99); MONOCYTES # (AUTO) 0.5 (0.2-0.8); MONOCYTES % 9.2 % (4.4-11.3); NEUTROPHILS % 56.8 % (38.7-80.0); PLATELET COUNT 231 x10e3/uL (140-360); RED BLOOD COUNT 3.17 x10e6/uL (3.6-5.1); RED CELL DISTRIBUTION WIDTH 19.9 % (11.7-14.4)
[2018-11-12 23:40] LABS: ALANINE AMINOTRANSFERASE 7 IU/L (0-55); ALBUMIN 3.7 g/dL (3.5-5.0); ALBUMIN/GLOBULIN RATIO 1.2 (0.8-2.0); ALKALINE PHOSPHATASE 102 IU/L (40-150); ANION GAP 15.7 mmol/L (8-16); BLOOD UREA NITROGEN 12 mg/dL (7-26); BUN/CREATININE RATIO 11 (6-25); CARBON DIOXIDE 20 mmol/L (22-29); CHLORIDE 100 mmol/L (98-107); CREATININE, SERUM 1.06 mg/dL (0.57-1.11); EST GLOMERULAR FILTRATION RATE > 60 ML/MIN (60-); GLUCOSE 118 mg/dL (74-118); POTASSIUM 3.7 mmol/L (3.5-5.1); SODIUM 132 mmol/L (136-145)
--- NOTE | 2018-11-13 00:22 | Diagnostic Imaging Report ---
EXAMINATION: CHEST 2 VIEWS INDICATION: ^FEVER ^[id number] ^[id number] ^Y COMPARISON: 06/23/2018 FINDINGS: PA and lateral views TUBES and LINES: None. LUNGS: Lungs are well inflated. There is no evidence of pneumonia or pulmonary edema. PLEURA: No pleural effusion or pneumothorax. HEART AND MEDIASTINUM: The cardiomediastinal silhouette is unremarkable. BONES AND SOFT TISSUES: No acute osseous lesion. Soft tissues are unremarkable. UPPER ABDOMEN: No free air under the diaphragm. IMPRESSION: No acute thoracic abnormality. Signed by: Dr. Edd Altman MD on 11/13/2018 12:19 AM
[2018-11-13 01:20] LABS: BILIRUBIN,URINE NEGATIVE (NEGATIVE); CLARITY,URINE CLOUDY (CLEAR); COLOR,URINE YELLOW (YELLOW); KETONES,URINE NEGATIVE (NEGATIVE); LEUKOCYTE ESTERASE ,URINE TRACE (NEGATIVE); NITRITE,URINE POSITIVE (NEGATIVE); PROTEIN,URINE DIPSTICK NEGATIVE (NEGATIVE); URINE UROBILINOGEN 0.2 mg/dL (0.2 - 1)
[2018-11-13 01:29] LABS: BACTERIA,URINE MANY /HPF; EPITHELIAL CELLS,URINE FEW /LPF; RBC,URINE 0-5 /HPF (0-5); WBC,URINE (MAN) >50 /HPF (0-5)
[2018-11-13] MEDS ORDERED: CEFTRIAXONE SOD 1 GM/NS 50 ML 50 ML IV ONE (01:30)
[2018-11-13 01:50] LABS: BLAST CELLS % MANUAL 1; EOSINOPHILS % (MANUAL) 2 % (0-7); LYMPHOCYTES % (MANUAL) 22 % (19-48); METAMYELOCYTES % (MANUAL) 2 % (0-0); MONOCYTES % (MANUAL) 3 % (3.4-9.0); NEUTROPHILS % (MANUAL) 67 % (40-74); NUCLEATED RED BLOOD CELLS 7; PROMYELOCYTES % (MANUAL) 1 % (0-0)
[2018-11-13 01:51] LABS: ANISOCYTOSIS MODE; MICROCYTOSIS SLIG; PLATELET ESTIMATE ADEQUATE; POIKILOCYTOSIS MODERATE; RBC MORPHOLOGY COMMENT NORMAL
[2018-11-13 01:52] LABS: PLATELET MORPHOLOGY COMMENT FEW LARGE; POLYCHROMASIA FEW; SMUDGE CELLS FEW; TEAR DROP CELLS FEW
[2018-11-13] MEDS ORDERED: SODIUM CHLORIDE 0.9% 1000ML 1,000 ML ONE (02:54)
[2018-11-13] MEDS ORDERED: SODIUM CHLORIDE 0.9% 1000ML 1,000 ML IV ONE (03:00)
== END 2018-11-13 04:25 | disposition home or self-care (01) ==
LOC: ER 22:45
DX: R50.9 Fever, unspecified (principal); N30.90 Cystitis, unspecified without hematuria; I10 Essential (primary) hypertension; E03.9 Hypothyroidism, unspecified; K21.9 Gastro-esophageal reflux disease without esophagitis; Z85.21 Personal history of malignant neoplasm of larynx; Z85.038 Personal history of other malignant neoplasm of large intestine; Z85.79 Personal history of other malignant neoplasms of lymphoid, hematopoietic and related tissues
CPT/HCPCS: 36415; 71046; 80053; 81001; 83605; 85025; 87040; 87086; 87186; 87400; 99284; J0131; J0696; J7030